=== PATIENT | female | born 1960 | race Caucasian/White ===

== ENCOUNTER → 2020-03-03 12:35 | Outpatient (CLI) | payer MEDICARE, SELFPAY ==
[2020-03-03 15:58] LABS: Coronavirus 19 IgG Antibody Positive (Negative); Coronavirus 19 IgM Antibody Negative (Negative)
== END ==
PROVIDERS: Visit Provider Ophthalmology
DX: Z01.818 Encounter for other preprocedural examination (principal); Z98.41 Cataract extraction status, right eye
CPT/HCPCS: 36415; 86328

== ENCOUNTER 2020-03-04 09:00 | Day surgery (SDC) | payer MEDICARE, SELFPAY ==
[2020-02-26 14:36] VITALS: BMI 72.3
[2020-03-04 09:35] VITALS: BP 157/65; PULSE 89; RESP 18; TEMP 36.1; O2SAT 97
[2020-03-04 09:55] LABS: POC Glucose,Bedside 91 (70-110)
[2020-03-04 10:55] VITALS: BP 123/78; PULSE 83; RESP 18; O2SAT 100
[2020-03-04 11:00] VITALS: BP 121/64; PULSE 79; RESP 18; O2SAT 100
[2020-03-04 11:05] VITALS: BP 121/62; PULSE 78; RESP 18; O2SAT 100
[2020-03-04 11:10] VITALS: BP 124/59; PULSE 95; RESP 18; O2SAT 100
[2020-03-04 11:13] VITALS: BP 144/70; PULSE 91; RESP 18; TEMP 36.1; O2SAT 94
== END 2020-03-04 11:34 | disposition home or self-care (01) ==
LOC: OR 09:05
PROVIDERS: PCP Internal Medicine; Visit Provider Ophthalmology
DX: H25.813 Combined forms of age-related cataract, bilateral (principal); Z88.2 Allergy status to sulfonamides; Z88.8 Allergy status to other drugs, medicaments and biological substances; Z79.82 Long term (current) use of aspirin; Z79.899 Other long term (current) drug therapy; Z80.9 Family history of malignant neoplasm, unspecified; Z82.49 Family history of ischemic heart disease and other diseases of the circulatory system
CPT/HCPCS: 66984; 82962; V2632

== ENCOUNTER → 2020-03-17 11:16 | Outpatient (CLI) | payer MEDICARE, SELFPAY ==
[2020-03-17 13:38] LABS: Coronavirus 19 IgG Antibody Positive (Negative); Coronavirus 19 IgM Antibody Negative (Negative)
== END ==
PROVIDERS: Visit Provider Ophthalmology
DX: Z01.818 Encounter for other preprocedural examination (principal); Z98.42 Cataract extraction status, left eye
CPT/HCPCS: 36415; 86328

== ENCOUNTER 2020-03-18 08:50 | Day surgery (SDC) | payer MEDICARE, SELFPAY ==
[2020-03-11 13:51] VITALS: BMI 76.6
[2020-03-18] VITALS (7 sets, daily range): BP systolic 124–163; BP diastolic 69–78; PULSE 83–86; RESP 18; TEMP 36.1–36.3; O2SAT 96–100
[2020-03-18 10:11] LABS: POC Glucose,Bedside 101 (70-110)
== END 2020-03-18 12:15 | disposition home or self-care (01) ==
LOC: OR 08:51
PROVIDERS: PCP Internal Medicine; Visit Provider Ophthalmology
DX: H25.813 Combined forms of age-related cataract, bilateral (principal); Z85.43 Personal history of malignant neoplasm of ovary; Z88.2 Allergy status to sulfonamides; Z88.8 Allergy status to other drugs, medicaments and biological substances; Z79.82 Long term (current) use of aspirin; Z79.899 Other long term (current) drug therapy
CPT/HCPCS: 66984; 82962; V2632